=== PATIENT | male | born 1990 | race Caucasian/White ===

== ENCOUNTER → 2017-04-18 | Outpatient (CLI) | payer OTHER ==
--- NOTE | 2017-04-18 19:50 | CONS ---
CONSULTATION DATE OF SERVICE: 04/18/2017 This patient is a 26-year-old gentleman who has been evaluated in the sleep center for significant excessive daytime sleepiness and possible obstructive sleep apnea/hypopnea syndrome. HISTORY OF PRESENT ILLNESS/SLEEP-WAKE EVALUATION: Patient's usual sleep schedule on weekdays is from 11 p.m. to 6:30 a.m. On weekends he usually sleeps from 1 a.m. until 10 a.m. Sometimes he has problems with falling asleep, although no TV in bedroom. He snores quite loudly and wakes up from sleep about 3 times with dry mouth, heartburn, restless legs, sweating. No nocturia. In the morning patient wakes up tired and it is usually difficult for him to get up and wake up in the morning. He asked his family to help him wake him up in the morning; otherwise he could sleep up to 16 hours straight if he has time and nobody wakes him up. He has difficulties paying attention, falling asleep during the day. He worries about his sleep, has problems with memory, concentration and irritability. [place] Sleepiness Scale is significantly increased at 18, including sleepiness while driving the car. PAST MEDICAL HISTORY: 1. Acid reflux. 2. Headaches. PAST SURGICAL HISTORY: None. MEDICATIONS: None. SOCIAL HISTORY: Smoking less than 1 pack per week. Alcohol consumption rarely. FAMILY HISTORY: Sleep apnea, snoring, headaches, acid reflux. REVIEW OF SYSTEMS: Awakenings from sleep. Sleepiness during the day. Not waking up from sleep. . PHYSICAL EXAMINATION: gentleman without distress. VITAL SIGNS: BP 115/71, HR 86, RR 16, height 5 feet 6 inches, weight 192, BMI 30.9. Neck is 15-1/2 inches in circumference. Temperature 98.2. Oxygen saturation at room air 97%. HEENT: PERRLA, EOMI. Evaluation of oropharynx showed tongue protrudes midline; small oropharyngeal air space; low position of soft palate. NECK: Supple. No JVD. Thyroid is not palpable. LUNGS: Clear to percussion and to auscultation. Good air exchange. No wheezing or rhonchi. HEART: S1, S2 irregularly irregular. ABDOMEN: Slightly obese. EXTREMITIES: No clubbing or cyanosis. 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 Cranial nerves 2 to 7 intact. There is no fasciculation or atrophy noted. No focal deficits observed. IMPRESSION: 1. Snoring, small oropharyngeal air space, multiple awakenings from sleep, daytime sleepiness; obstructive sleep apnea/hypopnea syndrome. 2. Significant excessive daytime sleepiness. [place] Sleepiness Scale increased to 18. The patient could sleep for 16 hours straight. Differential diagnosis would include idiopathic hypersomnia. 3. Mild obesity; BMI 30.9. 4. History of headaches. 5. Acid reflux. PLAN: 1. Polysomnography for evaluation of patient's breathing during sleep. 2. CPAP/BiPAP titration if sleep study confirms obstructive sleep apnea-hypopnea syndrome. 3. Preferable position during sleep on the side. 4. No driving if patient feels any sleepiness. Patient is aware of civil and criminal liability for unsafe driving. 5. I will see patient for follow-up visit to explain results of testing and following plan. 6. Multiple sleep latency test if polysomnogram is negative for obstructive sleep apnea/hypopnea syndrome. Thank you very much for referring this patient for consultation. Sincerely, Merrick Gabriel MD, PhD, FAASM Diplomat of [employer] [facility] [place] MMODL / IJN: [id number] /
== END ==
LOC: SLEEP 14:26
PROVIDERS: ATTEND Internal Medicine
DX: G47.10 Hypersomnia, unspecified (principal); G47.33 Obstructive sleep apnea (adult) (pediatric); E66.9 Obesity, unspecified; K21.9 Gastro-esophageal reflux disease without esophagitis; Z68.30 Body mass index [BMI] 30.0-30.9, adult; Z87.891 Personal history of nicotine dependence
CPT/HCPCS: 99211

== ENCOUNTER → 2018-01-30 | Outpatient (CLI) | payer OTHER ==
--- NOTE | 2018-01-30 09:04 | NM ---
EXAMINATION TYPE: NM hepatobiliary w EF DATE OF EXAM: 01/30/2018 COMPARISON: NONE HISTORY: Right upper quadrant pain and diarrhea TECHNIQUE: After the intravenous administration of 5.5 mCi Tc 99m Mebrofenin hepatobiliary scintigrap hy is performed. Immediate images post injection. FINDINGS: There is satisfactory initial accumulation of tracer by the liver. The gallbladder is visualized wit hin 4 minutes. The small bowel activity is noted within 40 minutes. At one hour 8 ounces of oral en sure plus is given to mimic CCK and gallbladder ejection fraction is calculated at 38 %, in the moira l range although lower limits of normal. Therefore there is no scintigraphic evidence of cystic or c ommon bile duct obstruction to suggest acute cholecystitis or gallbladder dyskinesia. IMPRESSION: No scintigraphic evidence of acute or chronic cholecystitis. Gallbladder ejection fractio n is lower limits of normal but does not fit criteria for biliary dyskinesia.
== END | disposition home or self-care (01) ==
LOC: RADNMMAIN 06:48
PROVIDERS: ATTEND Family Medicine
DX: R10.11 Right upper quadrant pain (principal); R19.7 Diarrhea, unspecified
CPT/HCPCS: 78226; A9537

== ENCOUNTER 2018-02-20 06:48 | Day surgery (SDC) | payer OTHER ==
[2018-02-19 11:58] VITALS: BMI 32.3
[~2018-02-20 06:48] MED LIST: LACTATED RINGERS 1,000 ML IV SCH; LIDOCAINE 1% 20 ML VIAL (10MG/ML) FOR IV START INTRADERMA PRN
[2018-02-20 07:09] VITALS: RESP 20; TEMP 98.5
[2018-02-20] MEDS ORDERED: PROPOFOL 10 MG/ML 20 ML VIAL IV ONE (07:39)
--- NOTE | 2018-02-20 07:48 | P.GSHP ---
History of Present Illness H&P Date: 02/20/18 Chief Complaint: Diarrhea Is a 19-year-old male who's had complaints of some intermittent diarrhea. He's also had some complaints of epigastric pain when eating. He presents today for colonoscopy.. Past Medical History Past Medical History: GERD/Reflux History of Any Multi-Drug Resistant Organisms: None Reported Past Surgical History: No Surgical Hx Reported Past Anesthesia/Blood Transfusion Reactions: No Reported Reaction Smoking Status: Former smoker - Past Family History Mother Family Medical History: No Reported History Medications and Allergies Home Medications Medication Instructions Recorded Confirmed Type Montelukast [Singulair] 10 mg PO HS 02/19/18 02/20/18 History Omeprazole 40 mg PO DAILY 02/19/18 02/20/18 History Allergies Allergy/AdvReac Type Severity Reaction Status Date / Time No Known Allergies Allergy Verified 02/19/18 11:54 Surgical - Exam Vital Signs Temp Pulse Resp BP Pulse Ox 98.5 F 98 20 147/81 95 02/20/18 07:07 02/20/18 07:07 02/20/18 07:07 02/20/18 07:07 02/20/18 07:07 - General well developed, no distress - Eyes PERRL - ENT normal pinna - Neck no masses - Respiratory normal expansion - Cardiovascular Rhythm: regular - Abdomen Abdomen: soft, non tender Assessment and Plan Assessment: Diarrhea. We'll perform colonoscopy.
--- NOTE | 2018-02-20 07:57 | P.OP ---
Date of Procedure: 02/20/18 Preoperative Diagnosis: Diarrhea Postoperative Diagnosis: Normal colon Random rectal biopsy Procedure(s) Performed: Colonoscopy Anesthesia: MAC Surgeon: Eduardo Jessica Pathology: other (Rectum) Condition: stable Disposition: PACU Description of Procedure: The patient's placed on the endoscopy table in the lateral position. He received IV sedation. Digital rectal exam was performed which revealed no abnormalities. The prostate was symmetrical without nodules. The possible colonoscope was then placed patient anus passed throughout the entire colon. The ileocecal valve was visualized. The cecum, ascending, transverse and descending colon appeared normal. The scope was brought back into the sigmoid colon and this appeared normal. Scope summer back into the rectum and this appeared normal. A random rectal biopsies performed due to the patient's symptoms of diarrhea. Scope was then brought through the anus and there is no internal and external hemorrhoids noted.
[2018-02-20 08:55] VITALS: BP 112/79; PULSE 67
== END 2018-02-20 09:04 | disposition home or self-care (01) ==
LOC: ORWHC2ENDO 06:48
PROVIDERS: ATTEND Surgery
DX: R19.7 Diarrhea, unspecified (principal); R10.13 Epigastric pain; K21.9 Gastro-esophageal reflux disease without esophagitis; Z79.899 Other long term (current) drug therapy; Z87.891 Personal history of nicotine dependence
CPT/HCPCS: 45380; 88305; J2704

== ENCOUNTER 2018-05-01 19:13 | Emergency (ER) | payer OTHER ==
[2018-05-01 19:27] VITALS: RESP 18
[2018-05-01] MEDS ORDERED: SODIUM CHLORIDE 0.9% 1,000 ML IV ONE (19:38)
--- NOTE | 2018-05-01 19:38 | ED ---
Abdominal Pain HPI - General Chief Complaint: Abdominal Pain Stated Complaint: abd pain Time Seen by Provider: 05/01/18 19:36 Source: patient Mode of arrival: ambulatory Limitations: no limitations - History of Present Illness Initial Comments: 27yo male with CC of belly button bleeding x 45 mintues prior to arrival. Pt stated for the past 3 days he was experiencing pain in the bellybutton, today he noticed bleeding/pus like substance coming from the bellybutton and presented for evaluation. Pt denies abdominal pain, diarrhea, constipation, nausea, vomiting, fever, chills, nightsweats, congenital defects, ventral hernia , melena, hematochezia, hematemesis, chest pain, shortness breath or any other social she symptoms. He was not sure why his umbilicus was bleeding so he presented for evaluation. Upon arrival VS within acceptable limits. Pt appears well. - Related Data Previous Rx's Medication Instructions Recorded Sulfamethox-Tmp 800-160Mg [Bactrim 1 tab PO Q12HR 5 Days #10 tab 05/01/18 DS 800-160 mg] Allergies Allergy/AdvReac Type Severity Reaction Status Date / Time No Known Allergies Allergy Verified 05/01/18 20:39 Review of Systems ROS Statement: Those systems with pertinent positive or pertinent negative responses have been documented in the HPI. ROS Other: All systems not noted in ROS Statement are negative. Constitutional: Denies: fever, chills, night sweats ENT: Denies: ear pain, throat pain Respiratory: Denies: cough, dyspnea, wheezes, hemoptysis, stridor Gastrointestinal: Reports: as per HPI (umbilicus bleeding). Denies: abdominal pain, nausea, vomiting, diarrhea, constipation, hematemesis, melena, hematochezia Genitourinary: Denies: urgency, dysuria, frequency, hematuria Musculoskeletal: Denies: back pain, joint swelling, arthralgia Skin: Denies: rash, lesions Neurological: Denies: headache, weakness, numbness, paresthesias, confusion Past Medical History Past Medical History: GERD/Reflux History of Any Multi-Drug Resistant Organisms: None Reported Past Surgical History: No Surgical Hx Reported Past Anesthesia/Blood Transfusion Reactions: No Reported Reaction Past Psychological History: No Psychological Hx Reported Smoking Status: Current every day smoker Past Alcohol Use History: None Reported Past Drug Use History: None Reported - Past Family History Mother Family Medical History: No Reported History General Exam - General Exam Comments Initial Comments: General: The patient is awake and alert, in no distress, and does not appear acutely ill. Eye: Pupils are equal, round and reactive to light, extra-ocular movements are intact. No nystagmus. There is normal conjunctiva bilaterally. No signs of icterus. Ears, nose, mouth and throat: There are moist mucous membranes and no oral lesions. Neck: The neck is supple, there is no tenderness or JVD. Cardiovascular: There is a regular rate and rhythm. No murmur, rub or gallop is appreciated. Respiratory: Lungs are clear to auscultation, respirations are non-labored, breath sounds are equal. No wheezes, stridor, rales, or rhonchi. Gastrointestinal: No noted diaphoresis, jaundice, pallor, protecting postures or squirming. Symmetrical pigmentation of abdomen without signs of inflammation , scarring. Striae present over abdomen. Umbilicus mildline, inverted without swelling, there is blood inside umbilicus, small carbuncle noted inside of umbilicus. No dilated veins. Abdomen contour obese, no noted abdominal distention. No visible masses. No peristalsis, aortic pulsations, or ventral hernia. Bowel sounds audible in all 4 quadrants, unremarkable. No friction rubs or venous hums. No epigastic, hepatic or abdominal bruits. No tenderness to light or deep palpation. Liver edge, not palpable. Spleen edge, right and left kidney not palpable. Superior bladder margin non-tender. Special Testing: Negative Pollock, Rovsing, McBurney, Wyatt, cutaneous hyperesthesia. Negative Heel Jar test. No CVA tenderness. Digital rectal exam deferred. Negative stallings turners or cullens sign Musculoskeletal: Normal ROM, no tenderness. Strength 5/5. Sensation intact. Pulses equal bilaterally 2+. Neurological: A&O x 3. CN II-XII intact, There are no obvious motor or sensory deficits. Coordination appears grossly intact. Speech is normal. Skin: Skin is warm and dry and no rashes or lesions are noted. Psychiatric: Cooperative, appropriate mood & affect, normal judgment. Limitations: no limitations Course Vital Signs 05/01/18 05/01/18 05/01/18 19:24 20:30 21:00 Temperature 98.4 F Pulse Rate 106 H 85 89 Respiratory 18 18 18 Rate Blood Pressure 142/87 133/85 110/91 O2 Sat by Pulse 97 98 98 Oximetry 05/01/18 05/01/18 05/01/18 21:30 22:00 22:28 Temperature 98.3 F Pulse Rate 72 70 Respiratory 17 18 Rate Blood Pressure 119/76 115/94 O2 Sat by Pulse 97 98 Oximetry Medical Decision Making - Medical Decision Making Labs unremarkable, WBC WNL. CT (-) for urachal cyst or reminants. PE revealed carbuncle like lesion, no significant surrounding erythema. No abdominal pain on PE concerning for acute abdomen. Umbilicus was irrigated, pt was rx for bactrim. Case discussed in detail with Dr. De La Fuente. At this time we feel pt is stable for d/c with f/u with PCP in 1-2 days. Return parameters discussed. Patient verbalized understanding, denied questions. Patient discharged in stable condition. - Lab Data Result diagrams: 05/01/18 19:54 05/01/18 19:54 Lab Results 05/01/18 05/01/18 05/01/18 Range/Units 19:40 19:54 19:54 WBC 9.8 (3.8-10.6) k/uL RBC 5.22 (4.30-5.90) m/uL Hgb 15.5 (13.0-17.5) gm/dL Hct 44.5 (39.0-53.0) % MCV 85.2 (80.0-100.0) fL MCH 29.8 (25.0-35.0) pg MCHC 35.0 (31.0-37.0) g/dL RDW 12.9 (11.5-15.5) % Plt Count 273 (150-450) k/uL Neutrophils % 53 % Lymphocytes % 35 % Monocytes % 5 % Eosinophils % 6 % Basophils % 0 % Neutrophils # 5.2 (1.3-7.7) k/uL Lymphocytes # 3.4 (1.0-4.8) k/uL Monocytes # 0.5 (0-1.0) k/uL Eosinophils # 0.5 (0-0.7) k/uL Basophils # 0.0 (0-0.2) k/uL Sodium 141 (137-145) mmol/L Potassium 4.0 (3.5-5.1) mmol/L Chloride 103 (98-107) mmol/L Carbon Dioxide 26 (22-30) mmol/L Anion Gap 12 mmol/L BUN 18 (9-20) mg/dL Creatinine 1.01 (0.66-1.25) mg/dL Est GFR (CKD-EPI)AfAm >90 (>60 ml/min/1.73 sqM) Est GFR (CKD-EPI)NonAf >90 (>60 ml/min/1.73 sqM) Glucose 124 H (74-99) mg/dL Calcium 9.7 (8.4-10.2) mg/dL Total Bilirubin 0.7 (0.2-1.3) mg/dL AST 39 (17-59) U/L ALT 50 (21-72) U/L Alkaline Phosphatase 45 (38-126) U/L Total Protein 7.2 (6.3-8.2) g/dL Albumin 4.6 (3.5-5.0) g/dL Amylase 67 (30-110) U/L Lipase 155 (23-300) U/L Urine Color Colorless Urine Appearance Clear (Clear) Urine pH 6.0 (5.0-8.0) Ur Specific [place] 1.005 (1.001-1.035) Urine Protein Negative (Negative) Urine Glucose (UA) Negative (Negative) Urine Ketones Negative (Negative) Urine Blood Negative (Negative) Urine Nitrite Negative (Negative) Urine Bilirubin Negative (Negative) Urine Urobilinogen <2.0 (<2.0) mg/dL Ur Leukocyte Esterase Negative (Negative) Disposition Clinical Impression: Carbuncle of umbilicus Disposition: HOME SELF-CARE Condition: Good Instructions: Furunculosis and Carbunculosis (ED) Additional Instructions: Please use medication as discussed. Please follow-up with family doctor in the next 2 days. Please return to emergency room if the symptoms increase or worsen or for any other concerns. Prescriptions: Sulfamethox-Tmp 800-160Mg [Bactrim DS 800-160 mg] 1 tab PO Q12HR 5 Days #10 tab Is patient prescribed a controlled substance at d/c from ED?: No Referrals: Silvia Hayes DO [Primary Care Provider] - 1-2 days Time of Disposition: 22:09
[2018-05-01 20:04] LABS: Appearance,Urine Clear (Clear); Bilirubin,Urine Negative (Negative); Blood,Urine Negative (Negative); Color,Urine Colorless; Glucose,Urine (UA) Negative (Negative); Ketones,Urine Negative (Negative); Leukocyte Esterase,Urine Negative (Negative); Nitrite,Urine Negative (Negative); Protein,Urine Negative (Negative); Specific Gravity,Urine 1.005 (1.001-1.035); Urobilinogen,Urine <2.0 mg/dL (<2.0)
[2018-05-01 20:20] LABS: Basophils % (A) 0 %; Eosinophils # (A) 0.5 k/uL (0-0.7); Eosinophils % (A) 6 %; HCT 44.5 % (39.0-53.0); HGB 15.5 gm/dL (13.0-17.5); Lymphocytes # (A) 3.4 k/uL (1.0-4.8); Lymphocytes % (A) 35 %; MCH 29.8 pg (25.0-35.0); MCV 85.2 fL (80.0-100.0); Mean Platelet Volume 7.1; Monocytes # (A) 0.5 k/uL (0-1.0); Monocytes % (A) 5 %; Neutrophils # (A) 5.2 k/uL (1.3-7.7); Neutrophils % (A) 53 %; Platelet Count 273 k/uL (150-450); RBC 5.22 m/uL (4.30-5.90); RDW 12.9 % (11.5-15.5); WBC 9.8 k/uL (3.8-10.6)
[2018-05-01 20:28] LABS: ALT 50 U/L (21-72); AST 39 U/L (17-59); Albumin 4.6 g/dL (3.5-5.0); Alkaline Phosphatase 45 U/L (38-126); Amylase 67 U/L (30-110); Anion Gap 12 mmol/L; Blood Urea Nitrogen 18 mg/dL (9-20); Calcium 9.7 mg/dL (8.4-10.2); Carbon Dioxide 26 mmol/L (22-30); Chloride 103 mmol/L (98-107); Glucose 124 mg/dL (74-99); Lipase 155 U/L (23-300); Sodium 141 mmol/L (137-145); Total Bilirubin 0.7 mg/dL (0.2-1.3); Total Protein 7.2 g/dL (6.3-8.2)
--- NOTE | 2018-05-01 21:15 | CT ---
EXAMINATION TYPE: CT abdomen pelvis w con DATE OF EXAM: 05/01/2018 COMPARISON: None HISTORY: Umbilical pain and bleeding through umbilical area. CT DLP: 1046.2 mGycm Automated exposure control for dose reduction was used. TECHNIQUE: Helical acquisition of images was performed from the lung bases through the pelvis. CONTRAST: Performed without Oral Contrast and with IV Contrast, patient injected with 100ml mL of Isovue 300. FINDINGS: Lung bases are clear. There is no pleural effusion. Heart size is normal. There is decreased density in the liver related to fatty infiltration. Spleen appears normal. There i s no pancreatic mass. Stomach appears normal. Gallbladder appears normal. There is no adrenal mass. Kidneys show satisfactory contrast opacification. There is no hydronephrosi s. Ureters are not dilated. There is no retroperitoneal adenopathy. There is no mesenteric adenopathy or edema. There is no ascites. Appendix appears normal. I see no intestinal wall thickening. There a re no dilated loops. Bladder distends smoothly. There is no evidence of a pelvic mass. There is no free fluid in the pelvis. There is no evidence of free air. Lumbar spine appears intact. Disc spaces are normal. Bony pelvis appears intact. There is n o inguinal hernia. There are bilateral inguinal lymph nodes measure up to 1.5 cm. There is no evidence of an umbilical mass. There is mild skin thickening at the umbilicus. IMPRESSION: MINIMAL SKIN THICKENING AT THE UMBILICUS. CLINICAL SIGNIFICANCE IS NOT CLEAR. FATTY INFILTRATION OF THE LIVER.
[2018-05-01 22:07] VITALS: BP 115/94; PULSE 70
[2018-05-01] MEDS ORDERED: SULFAMETHOX-TMP 800-160MG 1 EACH TAB PO STA (22:07)
[2018-05-01 22:30] VITALS: TEMP 98.3
== END 2018-05-01 22:29 | disposition home or self-care (01) ==
LOC: EC 19:13
DX: L02.2 Cutaneous abscess, furuncle and carbuncle of trunk (principal); F17.200 Nicotine dependence, unspecified, uncomplicated
CPT/HCPCS: 36415; 80053; 82150; 83690; 85025; 81003; 74177; 99284; 96360; 96361; Q9967

== ENCOUNTER → 2019-02-24 | Outpatient (CLI) | payer OTHER ==
[2019-02-24 17:45] LABS: HCT 49.7 % (39.0-53.0); HGB 16.8 gm/dL (13.0-17.5); MCH 29.5 pg (25.0-35.0); MCHC 33.9 g/dL (31.0-37.0); MCV 87.1 fL (80.0-100.0); Mean Platelet Volume 6.9; Platelet Count 339 k/uL (150-450); RDW 13.3 % (11.5-15.5); WBC 9.3 k/uL (3.8-10.6)
== END | disposition home or self-care (01) ==
LOC: LABWHC1 17:02
PROVIDERS: ATTEND Surgery
DX: Z01.812 Encounter for preprocedural laboratory examination (principal); K46.9 Unspecified abdominal hernia without obstruction or gangrene
CPT/HCPCS: 36415; 85027

== ENCOUNTER 2019-03-03 07:31 | Day surgery (SDC) | payer OTHER ==
[2019-02-24 12:11] VITALS: BMI 31.4
[~2019-03-03 07:31] MED LIST changes: +DEXAMETHASONE SOD PHOSPHATE 10 MG/ML 1 ML VIAL IV ONE; +MIDAZOLAM 2 MG/2 ML VIAL IV PRN; +ONDANSETRON 4 MG/2 ML VIAL IVP ONE; +SCOPOLAMINE 1.5MG/72HR PATCH TRANSDERM ONE
[2019-03-03] MEDS ORDERED: HEPARIN SODIUM,PORCINE 5,000 UNIT/ML 1 ML VIAL SQ ONE (08:55)
--- NOTE | 2019-03-03 08:59 | P.GSHP ---
History of Present Illness H&P Date: 03/03/19 Chief Complaint: Umbilical hernia This a 28-year-old male has developed umbilical hernia. Patient resents today for laparoscopic robotic-assisted repair. Past Medical History Past Medical History: GERD/Reflux Additional Past Medical History / Comment(s): HERNIA History of Any Multi-Drug Resistant Organisms: None Reported Past Surgical History: No Surgical Hx Reported Additional Past Surgical History / Comment(s): COLONSCOPY Past Anesthesia/Blood Transfusion Reactions: No Reported Reaction Smoking Status: Current every day smoker - Past Family History Mother Family Medical History: No Reported History Medications and Allergies Home Medications Medication Instructions Recorded Confirmed Type No Known Home Medications 02/24/19 03/03/19 History Allergies Allergy/AdvReac Type Severity Reaction Status Date / Time No Known Allergies Allergy Verified 03/03/19 08:01 Surgical - Exam Vital Signs Temp Pulse Resp BP Pulse Ox 97.2 F L 72 16 115/73 96 03/03/19 08:09 03/03/19 08:09 03/03/19 08:09 03/03/19 08:09 03/03/19 08:09 - General well developed, well nourished, no distress - Eyes PERRL - ENT normal pinna - Neck no masses - Respiratory normal expansion - Cardiovascular Rhythm: regular - Abdomen Abdomen: soft, non tender Hernia: umbilical Assessment and Plan Assessment: Umbilical hernia. We'll perform laparoscopic robotic-assisted repair
[2019-03-03] MEDS ORDERED: LIDOCAINE 1% INJ 10MG/ML (20 ML MDV) ONE (09:19)
[2019-03-03] MEDS ORDERED: PROPOFOL 10 MG/ML 20 ML VIAL IV ONE (09:19)
[2019-03-03] MEDS ORDERED: GLYCOPYRROLATE 0.2 MG/ML 2 ML VIAL ONE (09:19)
[2019-03-03] MEDS ORDERED: ROCURONIUM BROMIDE 10 MG/ML 10 ML VIAL IV ONE (09:19)
[2019-03-03] MEDS ORDERED: MIDAZOLAM 2 MG/2 ML VIAL ONE (09:19)
[2019-03-03] MEDS ORDERED: SUCCINYLCHOLINE CHLORIDE 100 MG/5 ML SYR IV ONE (09:19)
[2019-03-03] MEDS ORDERED: NEOSTIGMINE 1 MG/ML 10 ML VIAL ONE (09:19)
[2019-03-03] MEDS ORDERED: fentaNYL (PF) 50 MCG/ML 2 ML AMP ONE (09:19)
[2019-03-03] MEDS ORDERED: BUPIVACAIN-EPI 0.25%-1:200,000 30 ML VIAL SQ ONE (09:45)
[2019-03-03] MEDS ORDERED: KETOROLAC 30 MG/ML 1 ML VIAL IVP ONE (10:30)
[2019-03-03] MEDS: HYDROmorphone 0.5 MG/0.5 ML SYRINGE IVP PRN ×3 (10:34→10:49)
[2019-03-03 10:38] VITALS: TEMP 96.9
--- NOTE | 2019-03-03 10:45 | P.OP ---
Date of Procedure: 03/03/19 Preoperative Diagnosis: Umbilical hernia Postoperative Diagnosis: Umbilical hernia Procedure(s) Performed: Laparoscopic robotic-assisted repair of umbilical hernia Anesthesia: MAC Surgeon: Eduardo Jessica Pathology: none sent Condition: stable Disposition: PACU Description of Procedure: The patient was placed on the operating table in the supine position. He received general anesthesia. His abdomen was prepped and draped usual fashion. Using a 5 mm optical trocar under direct visualization the peritoneal cavity was entered in the left upper quadrant. The abdomen was then insufflated. The laparoscope was placed back into the perineal cavity. Next a 8 mm robotic trocar was placed in the left lower quadrant and a 12 mm robotic trocar was placed in the left lateral position. The original 5 mm trocar was exchanged for a 8 mm robotic trocar. The patient's placed in the left side up position. And the patient was undocked the robot. The umbilical hernia was visualized. Using hook cautery the peritoneum over the umbilical hernia was excised. The fascial opening was repaired using 0V LOC suture. Next a piece of 11 cm round ventral light ST mesh was placed into the. Cavity and secured with 2 OV lock suture. The patient was undocked the robot. The needles were retrieved. The fascia of the 12 mm trocar site was closed with 0 Ethibond suture. Skin was closed interrupted 3-0 Monocryl suture. Dermabond dressings was applied. Patient top procedure well and was sent to recovery room stable condition.
[2019-03-03] MEDS ORDERED: LACTATED RINGERS 1,000 ML IV ONE ×2 (11:15)
--- NOTE | 2019-03-03 11:26 | P.ANPRN ---
Procedure Note - Anesthesia - Nerve Block Performed Bilateral Rectus Abdominis Infusion Time Out Performed: Yes Date of Procedure: 03/03/19 Procedure Start Time: 10:55 Location of Patient Procedure: PACU Indication: Acute Post-Operative Pain Specifically requested for management of pain by DrFortunato: Eduardo Jessica Sedation Type: Sedate with meaningful contact maintained Preparation: Sterile Prep Position: Supine Catheter: None Needle Types: Pajunk Needle Gauge: 21 Technique: Ultrasound Injectate: Other (see comment) (0.25% ropivacaine/0.5% lidocaine 25 mL each side) Adjunct: Epinephrine (see comment for dilution ratio) (1:200,000) Blood Aspirated: No Pain Paresthesia on Injection Noted: No Resistance on Injection: Normal Events: Uneventful and Well Tolerated
[2019-03-03 11:32] VITALS: RESP 16
[2019-03-03 14:29] VITALS: BP 132/77; PULSE 85
== END 2019-03-03 15:15 | disposition home or self-care (01) ==
LOC: OR 07:31
PROVIDERS: ATTEND Surgery
DX: K42.9 Umbilical hernia without obstruction or gangrene (principal); F17.200 Nicotine dependence, unspecified, uncomplicated
CPT/HCPCS: 64486; 49652; C1781; J2250; J1644; J1100; J2710; J0690; J2405; J2001; J3010; J1885; J0330; J2704; J1170